=== PATIENT | female | born 1970 | race Caucasian/White ===

== ENCOUNTER 2021-11-03 16:53 | Emergency (ER) | payer BC, MEDICAID ==
[~2021-11-03] VITALS: Ht 154.9 cm; Wt 98.4 kg
[~2021-11-03 16:53] MED LIST: METF1000 PO
[2021-11-03 17:00] VITALS: BP 122/73
--- NOTE | 2021-11-03 17:10 | NUR ---
PT W/C ASSISTED TO BED
--- NOTE | 2021-11-03 17:23 | NUR ---
DR. LOPEZ EVALUATING PATIENT AT BEDSIDE.
--- NOTE | 2021-11-03 17:45 | NUR ---
SAFETY PRECAUTIONS PUT INTO PLACE, PROVIDED PATIENT W/ WARM BLANKET. ALL PATIENT NEEDS MET AT THIS TIME, WILL CONTINUE TO MONITOR.
--- NOTE | 2021-11-03 17:48 | NUR ---
PT SENT TO CT WITH TECH
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
[2021-11-03 19:14] VITALS: BP 117/70
--- NOTE | 2021-11-03 19:25 | NUR ---
Pt report given to EZ GARCIA. Transfer of care at this time.
[2021-11-03] MEDS: HYDROcodone/APAP 5/325 MG 1 TAB TAB PO ONE (19:37)
--- NOTE | 2021-11-03 19:41 | NUR ---
Patient discharged with v/s stable. Written and verbal after care instructions given and explained. Patient verbalized understanding. Ambulatory with steady gait. All questions addressed prior to discharge. Advised to follow up with PMD. Patient given survey.
--- NOTE | 2021-11-03 19:48 | NUR ---
PATIENT DISCHARGED COMPLETE ASSESSMENT NOT FINISHED. MADE CHARGE AWARE.
== END 2021-11-03 19:41 | disposition home or self-care (01) ==
LOC: MED 16:53
DX: R10.30 Lower abdominal pain, unspecified (principal); R51.9 Headache, unspecified; R42 Dizziness and giddiness; V49.49XA Driver injured in collision with other motor vehicles in traffic accident, initial encounter; Y93.89 Activity, other specified; Y92.89 Other specified places as the place of occurrence of the external cause; Y99.8 Other external cause status
CPT/HCPCS: 70450; 70490; 71250; 99285